=== PATIENT | male | born 1970 | race Caucasian/White ===

== ENCOUNTER 2017-12-01 20:18 | Emergency (ER) | payer SELFPAY ==
[2017-12-01] MEDS ORDERED: Lidocaine 1% 5ml(IM or SUTURE)(PAIN CLINIC) IJ ONE (20:36)
[2017-12-01] MEDS ORDERED: Lidocaine 1% 5ml(IM or SUTURE)(PAIN CLINIC) ONE (20:36)
--- NOTE | 2017-12-01 20:36 | ED Physician Documentation ---
Foot Injury - HISTORIAN Historian: patient - HPI Chief Complaint: Foot Injury Onset: minutes Where: home Further Comments: yes (47 year old male patient presents with splinter in bottom of right foot from wood floor.) - ROS CONST: no problems CVS/RESP: none NEURO: denies: headache GI/: denies: nausea, vomiting MS/SKIN/LYMPH: none - PAST HX Past History: other (HTN) Allergies/Adverse Reactions: Allergies Allergy/AdvReac Type Severity Reaction Status Date / Time Beef Containing Products Allergy Verified 04/09/15 23:35 Milk Containing Products Allergy Verified 04/09/15 23:35 Home Medications: Ambulatory Orders Medication Instructions Recorded Epinephrine [Epipen 2-Sarmad] 0.3 mg IJ 1T PRN #1 ml 05/20/14 Lisinopril [Prinivil] 20 mg PO QD 04/09/15 - SOCIAL HX Smoking History: non-smoker - FAMILY HX Family History: none - VITAL SIGNS Vital Signs: Vital Signs Temp Pulse Resp BP Pulse Ox 121/71 04/10/15 00:22 - REVIEWED ASSESSMENTS Nursing Assessment Reviewed: Yes Vitals Reviewed: Yes Procedures - Incision and Drainage Site: left foot Blade Size: 11 I & D Procedure: Chlorhexidine Progress: .5 cm incision made. 1 cm splinter removed with splinter forceps. Foot Injury Physical Exam - Physical Exam General Appearance: moderate distress Foot: right foot: non-tender, normal inspection, no evidence of injury, left foot: other (1 cm splinter noted in planter aspect of left foot, in area of 2- 3rd metatarsal head), bilateral foot: normal range of motion Gait: limited by pain Neuro: sensation nml, motor nml Skin: intact, warm, dry Discharge Clincal Impression: Splinter of foot Qualifiers: Encounter type: initial encounter Laterality: left Qualified Code(s): S90.852A - Superficial foreign body, left foot, initial encounter Referrals: Primary Doctor,No [Primary Care Provider] - 2 Days Condition: Stable Disposition: 01 HOME, SELF-CARE Decision to Admit: NO Decision Time: 20:55
[2017-12-01 21:45] VITALS: BP 144/96
== END 2017-12-01 20:58 | disposition home or self-care (01) ==
LOC: ED 20:18
DX: S90.852A Superficial foreign body, left foot, initial encounter (principal); X58.XXXA Exposure to other specified factors, initial encounter; Y92.9 Unspecified place or not applicable; Y93.9 Activity, unspecified
CPT/HCPCS: 99282